=== PATIENT | male | born 1950 | race Caucasian/White ===

== ENCOUNTER 2024-06-18 13:28 | Emergency (ER) | payer MEDICARE, BC ==
[2024-06-18] MEDS ORDERED: Sodium Chloride 0.9% 10 ML Syringe FLUSH PRN (13:39)
[2024-06-18 13:56] LABS: BASOPHILS PERCENT AUTO 0.6 % (0.2-1.2); EOSINOPHILS ABSOLUTE AUTO 0.1 x10^3/uL (0.0-0.5); EOSINOPHILS PERCENT AUTO 2.1 % (0.0-4.0); HEMATOCRIT 39.7 % (40.0-52.0); IMMATURE GRAN ABSOLUTE AUTO 0.01 x10^3/uL (0.00-0.07); LYMPHOCYTES PERCENT AUTO 19.8 % (25.0-50.0); MEAN CORPUSCULAR HEMOGLOBIN 29.4 pg (26.0-32.0); MEAN CORPUSCULAR HGB CONC 35.3 g/dL (32.0-36.0); MEAN CORPUSCULAR VOLUME 83.4 fL (78.0-93.0); MONOCYTES ABSOLUTE AUTO 0.3 x10^3/uL (0.0-0.8); MONOCYTES PERCENT AUTO 6.2 % (2.0-11.0); NEUTROPHILS ABSOLUTE AUTO 3.7 x10^3/uL (1.8-7.7); NEUTROPHILS PERCENT AUTO 71.1 % (50.0-80.0); PLATELET COUNT,PLT 241 x10^3/uL (130-400); RED BLOOD CELL COUNT 4.76 x10^6/uL (4.5-6.0); WHITE BLOOD CELL COUNT,WBC 5.2 x10^3/uL (4.0-10.0)
[2024-06-18 14:12] LABS: CREATININE 1.3 mg/dL (0.70-1.30); ESTIMATED GFR 57 mL/min (>=60)
[2024-06-18 14:20] LABS: A/G RATIO 1.11; ALANINE AMINOTRANSFERASE,ALT 22 U/L (16-63); ALBUMIN 3.9 g/dL (3.4-5.0); ALKALINE PHOSPHATASE 87 U/L (46-116); ASPARTATE AMNIOTRANSFERASE,AST 24 U/L (15-37); BILIRUBIN TOTAL 0.9 mg/dL (0.2-1.0); BLOOD UREA NITROGEN,BUN 18 mg/dL (7-18); CALCIUM 9.2 mg/dL (8.5-10.1); CARBON DIOXIDE,CO2 30 mmol/L (21-32); CHLORIDE,CL 106 mmol/L (98-107); GLUCOSE RANDOM 95 mg/dL (70-99); PROTEIN TOTAL,TP 7.4 g/dL (6.4-8.2); SODIUM,NA 142 mmol/L (136-145)
[2024-06-18] MEDS: Sodium Chloride 0.9% 1,000 ML IV ONE (14:24)
[2024-06-18] MEDS: Iopamidol 755 Mg/ML 100 ML Bottle IVPUSH ONE (15:33)
== END 2024-06-18 16:08 | disposition home or self-care (01) ==
LOC: VM.ED 13:28
DX: R42 Dizziness and giddiness (principal)
CPT/HCPCS: 36415; 70496; 80053; 84484; 85025; 93005; 99284; J7030; Q9967